=== PATIENT | female | born 1975 | race Caucasian/White ===

== ENCOUNTER → 2016-08-12 | Outpatient (REF) | payer OTHER ==
[~2016-08-12] MED LIST: AMLO5TAB2 PO; DYAZCA OR; FLUO20CA8 PO; IBUP600T26 PO; IRON325T3 PO; LISI5TAB PO; NORCOTAB PO; PANT40TA2 PO; metoprolol OR
== END ==
LOC: M LAB REF 21:28
PROVIDERS: ATTEND Physician Assistant Medical
DX: N39.0 Urinary tract infection, site not specified (principal)

== ENCOUNTER 2016-09-09 14:00 | Emergency (ER) | payer BC, OTHER ==
[~2016-09-09] VITALS: Ht 165.1 cm; Wt 99.8 kg
[2016-09-09] MEDS ORDERED: PANT40TA2 (14:12)
[2016-09-09] MEDS ORDERED: TRIAMTERENE-HCTZ (14:12)
[2016-09-09] MEDS ORDERED: FLUT1SPR2 (14:12)
[2016-09-09] MEDS ORDERED: LISI10TA4 (14:12)
[2016-09-09] MEDS ORDERED: FLUO20CA9 (14:12)
[2016-09-09] MEDS ORDERED: NS 1,000 ML IV ONE (14:30)
[2016-09-09] MEDS ORDERED: ONDANSETRON 4MG/2ML VIAL (J2405) IV ONE (14:30)
[2016-09-09] MEDS ORDERED: KETOROLAC 30 MG/ML VIAL (J1885) IV ONE (14:30)
[2016-09-09 15:04] LABS: BASO % 0.4 % (0.0-1.0); EOS # 0.1 K/mm3 (0.0-0.50); EOS % 1.8 % (0.0-3.0); LARGE UNSTAINED CELL # 0.1 K/mm3 (0.0-0.4); LARGE UNSTAINED CELL % 2.5 % (0.0-4.0); LYMPH # 1.5 K/mm3 (1.5-4.5); LYMPH % 28.3 % (24.0-44.0); MEAN CORPUSCULAR HEMOGLOBIN 29.6 pg (27.0-33.0); MEAN CORPUSCULAR HGB CONC 34.1 g/dl (32.0-36.5); MEAN CORPUSCULAR VOLUME 86.6 fl (80.0-96.0); MONO # 0.5 K/mm3 (0.0-0.8); MONO % 9.6 % (0.0-5.0); NEUTROPHILS # 3.1 K/mm3 (1.8-7.7); NEUTROPHILS % 57.4 % (36.0-66.0); PLATELET COUNT, AUTOMATED 237 k/mm3 (150-450); RED CELL DISTRIBUTION WIDTH 12.8 % (11.5-14.5); WHITE BLOOD COUNT 5.4 K/mm3 (4.0-10.0)
[2016-09-09 15:34] LABS: ALBUMIN 4.4 GM/DL (3.2-5.2); ALBUMIN/GLOBULIN RATIO 1.16 (1.00-1.93); ALKALINE PHOSPHATASE 92 U/L (45-117); ALT/SGPT 43 U/L (12-78); AMYLASE 42 U/L (25-115); ANION GAP 10 MEQ/L (8-16); AST/SGOT 29 U/L (15-37); BILIRUBIN,DIRECT 0.1 MG/DL (0.0-0.2); BILIRUBIN,TOTAL 0.3 MG/DL (0.2-1.0); BLOOD UREA NITROGEN 16 MG/DL (7-18); CALCIUM LEVEL 9.2 MG/DL (8.5-10.1); CARBON DIOXIDE LEVEL 22 MEQ/L (21-32); CHLORIDE LEVEL 105 MEQ/L (98-107); CREATININE FOR GFR 0.94 MG/DL (0.55-1.02); GLOMERULAR FILTRATION RATE > 60.0 (>58); GLUCOSE, FASTING 89 MG/DL (70-105); POTASSIUM SERUM 3.4 MEQ/L (3.5-5.1); SODIUM LEVEL 137 MEQ/L (136-145); TOTAL PROTEIN 8.2 GM/DL (6.4-8.2)
[2016-09-09] MEDS ORDERED: ZOFR4TAB3 PO (16:42)
[2016-09-09 16:49] VITALS: BP 107/76
== END 2016-09-09 16:53 | disposition home or self-care (01) ==
LOC: M ED 15:01
DX: A08.0 Rotaviral enteritis (principal); I10 Essential (primary) hypertension; F99 Mental disorder, not otherwise specified; J30.9 Allergic rhinitis, unspecified; Z87.891 Personal history of nicotine dependence; Z79.899 Other long term (current) drug therapy; Z91.09 Other allergy status, other than to drugs and biological substances
CPT/HCPCS: 80048; 80076; 81001; 82150; 83690; 85025; 87507; 96361; 96374; 96375; 99283; J1885; J2405

== ENCOUNTER 2016-12-08 21:45 | Emergency (ER) | payer BC, OTHER ==
[~2016-12-08] VITALS: Ht 165.1 cm; Wt 102.3 kg
[~2016-12-08 21:45] MED LIST changes: +FLUO20CA19; +FLUT1SPR2; +LISI10TA4; +PANT40TA2; +TRIAMTERENE-HCTZ; +ZOFR4TAB3 PO
[2016-12-08 21:46] VITALS: BP 122/79
[2016-12-08] MEDS ORDERED: METO50TA7 PO (21:54)
--- NOTE | 2016-12-09 06:32 | REP ---
Clinical: Trauma. Technique: AP, lateral, bilateral oblique views right foot . Findings: The osseous structures and joint spaces are intact and normal. There is no evidence for acute fracture or dislocation. Surrounding soft tissues are unremarkable. No subcutaneous emphysema or radiodense foreign body. Impression: Normal examination . No acute fracture or dislocation. Signed by Shaq Chris MD 12/09/2016 01:13 A
== END 2016-12-08 23:45 | disposition home or self-care (01) ==
LOC: M ED 21:45
DX: S90.31XA Contusion of right foot, initial encounter (principal); W23.0XXA Caught, crushed, jammed, or pinched between moving objects, initial encounter; Y92.410 Unspecified street and highway as the place of occurrence of the external cause; Y93.89 Activity, other specified; Y99.8 Other external cause status; Z98.84 Bariatric surgery status; Z90.79 Acquired absence of other genital organ(s); Z90.49 Acquired absence of other specified parts of digestive tract; Z79.899 Other long term (current) drug therapy; Z91.09 Other allergy status, other than to drugs and biological substances

== ENCOUNTER → 2017-07-30 | Outpatient (REF) | payer OTHER ==
[2017-07-30 21:48] LABS: APPEARANCE, URINE HAZY (CLEAR); BACTERIA, URINE AUTO 2+ (NEGATIVE); BILIRUBIN, URINE AUTO NEGATIVE (NEGATIVE); BLOOD, URINE BLOOD 2+ (NEGATIVE); COLOR, URINE YELLOW (YELLOW); GLUCOSE, URINE (UA) AUTO NEGATIVE (NEGATIVE); KETONE, URINE AUTO NEGATIVE (NEGATIVE); LEUKOCYTE ESTERASE, URINE AUTO 1+ (NEGATIVE); MUCUS, URINE SMALL (NEGATIVE); NITRITE, URINE AUTO POSITIVE (NEGATIVE); PROTEIN, URINE AUTO NEGATIVE (NEGATIVE); RBC, URINE AUTO 5 /HPF (0-3); SQUAMOUS EPITHELIAL CELL UR AU 0 /HPF (0-6); UROBILINOGEN, URINE AUTO 0.2 mg/dL (0.0-2.0); WBC, URINE AUTO 55 /HPF (0-3)
== END ==
LOC: M LAB REF 09:28
DX: N39.0 Urinary tract infection, site not specified (principal)
CPT/HCPCS: 81001

== ENCOUNTER 2017-10-13 10:36 | Emergency (ER) | payer BC, OTHER ==
[2017-10-13 12:38] LABS: BASO % 0.3 % (0.0-1.0); EOS % 0.5 % (0.0-3.0); HEMATOCRIT 40.9 % (36.0-47.0); HEMOGLOBIN 14.2 g/dl (12.0-15.5); IMMATURE GRANULOCYTE % 0.5 % (0-3.0); LYMPH # 1.4 10^3/uL (1.5-4.5); LYMPH % 21.2 % (24.0-44.0); MEAN CORPUSCULAR HEMOGLOBIN 28.9 pg (27.0-33.0); MEAN CORPUSCULAR HGB CONC 34.7 g/dl (32.0-36.5); MEAN CORPUSCULAR VOLUME 83.3 fl (80.0-96.0); MONO # 0.7 10^3/uL (0.0-0.8); MONO % 10.5 % (0.0-5.0); NEUTROPHILS # 4.5 10^3/uL (1.8-7.7); PLATELET COUNT, AUTOMATED 279 10^3/uL (150-450); RED BLOOD COUNT 4.91 10^6/uL (4.00-5.40); RED CELL DISTRIBUTION WIDTH 12.9 % (11.5-14.5); WHITE BLOOD COUNT 6.7 10^3/uL (4.0-10.0)
[2017-10-13] MEDS: PANTOPRAZOLE 40MG INJ (PROTONIX) (C9113) IV (12:47)
[2017-10-13] MEDS: NS 1,000 ML IV (12:47)
[2017-10-13] MEDS: ONDANSETRON 4MG/2ML VIAL (J2405) IV (12:47)
[2017-10-13] MEDS: KETOROLAC 30 MG/ML VIAL (J1885) IV (12:48)
[2017-10-13 12:58] LABS: LACTIC ACID SEPSIS PROTOCOL 1.7 MMOL/L (0.4-2.0)
[2017-10-13 12:59] LABS: ALBUMIN 3.9 GM/DL (3.2-5.2); ALBUMIN/GLOBULIN RATIO 0.87 (1.00-1.93); ALKALINE PHOSPHATASE 81 U/L (45-117); ALT/SGPT 52 U/L (12-78); ANION GAP 9 MEQ/L (8-16); AST/SGOT 37 U/L (7-37); BILIRUBIN,DIRECT 0.1 MG/DL (0.0-0.2); BILIRUBIN,TOTAL 0.4 MG/DL (0.2-1.0); BLOOD UREA NITROGEN 7 MG/DL (7-18); CALCIUM LEVEL 9.5 MG/DL (8.5-10.1); CARBON DIOXIDE LEVEL 24 MEQ/L (21-32); CHLORIDE LEVEL 102 MEQ/L (98-107); CREATININE FOR GFR 0.74 MG/DL (0.55-1.30); GLOMERULAR FILTRATION RATE > 60.0 (>58); GLUCOSE, FASTING 97 MG/DL (70-100); LIPASE 90 U/L (73-393); POTASSIUM SERUM 3.1 MEQ/L (3.5-5.1); SODIUM LEVEL 135 MEQ/L (136-145); TOTAL PROTEIN 8.4 GM/DL (6.4-8.2)
[2017-10-13] MEDS ORDERED: ISOVUE-370 76% 100ML VIAL (Q9967) As Ordered (13:04)
[2017-10-13 13:11] LABS: KETONE, URINE AUTO RFX NEGATIVE (NEGATIVE); LEUKOCYTE ESTERASE UR AUTO RFX NEGATIVE (NEGATIVE); MUCUS, URINE RFX SMALL (NEGATIVE); NITRITE, URINE AUTO RFX NEGATIVE (NEGATIVE); RBC, URINE AUTO RFX 5 /HPF (0-3); SPECIFIC GRAVITY UR AUTO RFX 1.023 (1.002-1.035); SQUAM EPITHELIAL CELL UR AURFX 1 /HPF (0-6); WBC, URINE AUTO RFX 10 /HPF (0-3)
[2017-10-13] MEDS: POTASSIUM CHLORIDE 10 MEQ SR TABLET PO (14:50)
== END 2017-10-13 15:32 | disposition home or self-care (01) ==
LOC: M ED 10:36
DX: A08.4 Viral intestinal infection, unspecified (principal); I10 Essential (primary) hypertension; K21.9 Gastro-esophageal reflux disease without esophagitis; J01.90 Acute sinusitis, unspecified; R60.9 Edema, unspecified; K22.70 Barrett's esophagus without dysplasia; F41.9 Anxiety disorder, unspecified; N83.8 Other noninflammatory disorders of ovary, fallopian tube and broad ligament; Z98.84 Bariatric surgery status
CPT/HCPCS: C9113

== ENCOUNTER 2018-02-21 04:32 | Emergency (ER) | payer BC, OTHER ==
[2018-02-21 05:45] LABS: BASO % 0.3 % (0.0-1.0); EOS # 0.1 10^3/uL (0.0-0.50); EOS % 0.6 % (0.0-3.0); HEMATOCRIT 37.2 % (36.0-47.0); HEMOGLOBIN 12.7 g/dl (12.0-15.5); IMMATURE GRANULOCYTE % 0.2 % (0-3.0); LYMPH # 2.3 10^3/uL (1.5-4.5); LYMPH % 18.5 % (24.0-44.0); MEAN CORPUSCULAR HEMOGLOBIN 29.3 pg (27.0-33.0); MEAN CORPUSCULAR HGB CONC 34.1 g/dl (32.0-36.5); MEAN CORPUSCULAR VOLUME 85.7 fl (80.0-96.0); MONO # 0.8 10^3/uL (0.0-0.8); MONO % 6.4 % (0.0-5.0); NEUTROPHILS # 9.1 10^3/uL (1.8-7.7); PLATELET COUNT, AUTOMATED 274 10^3/uL (150-450); RED BLOOD COUNT 4.34 10^6/uL (4.00-5.40); RED CELL DISTRIBUTION WIDTH 13.6 % (11.5-14.5); WHITE BLOOD COUNT 12.2 10^3/uL (4.0-10.0)
[2018-02-21] MEDS: PANTOPRAZOLE 40MG INJ (PROTONIX) (C9113) IV (05:45)
[2018-02-21] MEDS: GI COCKTAIL 50ML BTL(HYOSCYAMINE/MAALOX/LIDOCAINE VISCOUS)(1:3:1) PO (05:45)
[2018-02-21] MEDS: MORPHINE 4 MG/ML 1ML VIAL/SYRINGE (J2270) IV ×2 (05:46→06:22)
[2018-02-21 06:03] LABS: ALBUMIN 3.8 GM/DL (3.2-5.2); ALBUMIN/GLOBULIN RATIO 1.03 (1.00-1.93); ALKALINE PHOSPHATASE 73 U/L (45-117); ALT/SGPT 34 U/L (12-78); ANION GAP 14 MEQ/L (8-16); AST/SGOT 31 U/L (7-37); BILIRUBIN,DIRECT < 0.1 MG/DL (0.0-0.2); BILIRUBIN,TOTAL 0.3 MG/DL (0.2-1.0); BLOOD UREA NITROGEN 12 MG/DL (7-18); CALCIUM LEVEL 9.3 MG/DL (8.5-10.1); CARBON DIOXIDE LEVEL 21 MEQ/L (21-32); CHLORIDE LEVEL 106 MEQ/L (98-107); CK-MB VALUE MASS < 1.0 NG/ML (<3.6); CPK CREATINE PHOSPHOKINASE 129 U/L (26-192); CREATININE FOR GFR 0.77 MG/DL (0.55-1.30); GLOMERULAR FILTRATION RATE > 60.0 (>58); GLUCOSE, FASTING 104 MG/DL (70-100); LIPASE 121 U/L (73-393); MB/CK RELATIVE INDEX 0.78 (< OR =4); POTASSIUM SERUM 3.8 MEQ/L (3.5-5.1); SODIUM LEVEL 141 MEQ/L (136-145); TOTAL PROTEIN 7.5 GM/DL (6.4-8.2); TROPONIN I < 0.02 NG/ML (< 0.10)
[2018-02-21] MEDS: GASTROGRAFIN SOLUTION 30ML PO ×2 (06:21→06:50)
[2018-02-21] MEDS ORDERED: ISOVUE-370 76% 100ML VIAL (Q9967) As Ordered (08:00)
== END 2018-02-21 10:43 | disposition home or self-care (01) ==
LOC: M ED 04:32
DX: R10.13 Epigastric pain (principal); N83.201 Unspecified ovarian cyst, right side; I10 Essential (primary) hypertension; K21.9 Gastro-esophageal reflux disease without esophagitis; M54.9 Dorsalgia, unspecified; F32.9 Major depressive disorder, single episode, unspecified; Z98.84 Bariatric surgery status; Z87.891 Personal history of nicotine dependence; Z91.048 Other nonmedicinal substance allergy status; Z79.899 Other long term (current) drug therapy
CPT/HCPCS: C9113

== ENCOUNTER 2019-12-13 14:12 | Emergency (ER) | payer OTHER, BC ==
[~2019-12-13] VITALS: Ht 165.1 cm; Wt 101.7 kg
[2019-12-13 14:12] VITALS: BP 109/75
[~2019-12-13 14:12] MED LIST changes: -FLUO20CA19; +FLUO20CA20 PO; +FLUO20CA22; +METO50TA7 PO; -PANT40TA2; +PANT40TA3; +REGL5TAB2 PO; +SUCR1TA PO; +ZOFR4TAB14 PO; -ZOFR4TAB3 PO
[2019-12-13] MEDS ORDERED: FLUO60TA6 (14:20)
[2019-12-13] MEDS ORDERED: TRIA37.53 (14:20)
[2019-12-13] MEDS ORDERED: METO1TAB7 (14:20)
--- NOTE | 2019-12-13 16:11 | REP ---
REASON: Status post trauma. There is a small avulsion fracture of the medial corner of the distal metaphysis of the proximal phalanx of the 5th digit with a slight intra-articular component. There is associated soft tissue swelling. Plantar and retrocalcaneal heel spurs are also noted. IMPRESSION: 5th digital fracture as described above. Electronically Signed by Tyrell Walker DO 12/13/2019 05:03 P
== END 2019-12-13 15:33 | disposition home or self-care (01) ==
LOC: M ED 14:12
DX: S92.512A Displaced fracture of proximal phalanx of left lesser toe(s), initial encounter for closed fracture (principal); M77.32 Calcaneal spur, left foot; Z91.048 Other nonmedicinal substance allergy status; W22.8XXA Striking against or struck by other objects, initial encounter; Y92.9 Unspecified place or not applicable; Y93.9 Activity, unspecified; Y99.8 Other external cause status; I10 Essential (primary) hypertension; Z98.84 Bariatric surgery status; Z79.899 Other long term (current) drug therapy; K21.9 Gastro-esophageal reflux disease without esophagitis; K22.70 Barrett's esophagus without dysplasia

== ENCOUNTER 2020-01-25 18:26 | Emergency (ER) | payer BC, OTHER ==
[~2020-01-25] VITALS: Ht 165.1 cm; Wt 99.7 kg
[~2020-01-25 18:26] MED LIST changes: +FLUO60TA6; +METO1TAB7; +PANT40TA29; -PANT40TA3; +TRIA37.53
[2020-01-25 19:44] LABS: BASO % 0.3 % (0.0-1.0); EOS # 0.1 10^3/uL (0.0-0.5); EOS % 0.8 % (0.0-3.0); HEMATOCRIT 38.8 % (36.0-47.0); HEMOGLOBIN 12.7 g/dl (12.0-15.5); LYMPH # 1.8 10^3/uL (1.5-5.0); LYMPH % 19.4 % (24.0-44.0); MEAN CORPUSCULAR HEMOGLOBIN 28.3 pg (27.0-33.0); MEAN CORPUSCULAR HGB CONC 32.7 g/dl (32.0-36.5); MEAN CORPUSCULAR VOLUME 86.4 fl (80.0-96.0); MONO # 0.7 10^3/uL (0.0-0.8); MONO % 7.6 % (0.0-5.0); NEUTROPHILS # 6.8 10^3/uL (1.5-8.5); NEUTROPHILS % 71.7 % (36.0-66.0); PLATELET COUNT, AUTOMATED 277 10^3/uL (150-450); RED BLOOD COUNT 4.49 10^6/uL (4.00-5.40); WHITE BLOOD COUNT 9.4 10^3/uL (4.0-10.0)
[2020-01-25 19:57] LABS: ALBUMIN 3.9 GM/DL (3.2-5.2); ALT/SGPT 30 U/L (12-78); BILIRUBIN,DIRECT < 0.1 MG/DL (0.0-0.2); BILIRUBIN,TOTAL 0.3 MG/DL (0.2-1.0); BLOOD UREA NITROGEN 13 MG/DL (7-18); CALCIUM LEVEL 9.2 MG/DL (8.5-10.1); CARBON DIOXIDE LEVEL 27 MEQ/L (21-32); CHLORIDE LEVEL 102 MEQ/L (98-107); CREATININE FOR GFR 0.77 MG/DL (0.55-1.30); GLOMERULAR FILTRATION RATE > 60.0 (>58); GLUCOSE, FASTING 91 MG/DL (70-100); LIPASE 675 U/L (73-393); SODIUM LEVEL 136 MEQ/L (136-145); TOTAL PROTEIN 7.2 GM/DL (6.4-8.2)
[2020-01-25] MEDS ORDERED: CIPR-249 PO (20:31)
[2020-01-25] MEDS ORDERED: ZOFR4TAB16 PO (20:31)
[2020-01-25] MEDS ORDERED: NORC1TAB7 PO (20:31)
[2020-01-25 20:42] VITALS: BP 132/61
== END 2020-01-25 20:50 | disposition home or self-care (01) ==
LOC: M ED 18:26
DX: N39.0 Urinary tract infection, site not specified (principal); K85.90 Acute pancreatitis without necrosis or infection, unspecified; I10 Essential (primary) hypertension; K21.9 Gastro-esophageal reflux disease without esophagitis; E28.2 Polycystic ovarian syndrome; Z98.84 Bariatric surgery status; Z91.048 Other nonmedicinal substance allergy status; Z79.899 Other long term (current) drug therapy

== ENCOUNTER → 2020-05-19 | Outpatient (CLI) | payer BC, OTHER ==
[~2020-05-19] MED LIST changes: +CIPR-249 PO; +NORC1TAB7 PO; +ZOFR4TAB16 PO
== END ==
LOC: M LABSMTC 09:50
PROVIDERS: ATTEND Pediatrics
DX: Z11.59 Encounter for screening for other viral diseases (principal)

== ENCOUNTER → 2020-07-03 | Outpatient (CLI) | payer BC, OTHER ==
[~2020-07-03] MED LIST changes: +LISI10TA22; -LISI10TA4
--- NOTE | 2020-07-04 05:05 | REP ---
INDICATION: VARICOSE VEINS ANDIE LEGS WITH PAIN COMPARISON: None. TECHNIQUE: Gallegos scale and color Doppler evaluation bilateral lower extremities using linear high frequency transducer including reflux evaluation. FINDINGS: Ultrasound examination of the right and left lower extremity deep venous structures from the common femoral vein to the popliteal vein demonstrates normal compressibility flow and wave patterns in response to respiration and augmentation. There is no evidence for deep venous thrombosis. Right lower extremity demonstrates only minimal reflux in the proximal greater saphenous vein measuring 4 mm diameter with reflux duration 4.8 seconds extending into the accessory saphenous vein. Left lower extremity demonstrates no reflux. IMPRESSION: No evidence for deep venous thrombosis. No significant reflux. <Electronically signed by Shaq Chris > 07/04/20 [id number]
== END ==
LOC: M RAD 09:40
PROVIDERS: ATTEND Physician Assistant
DX: I83.813 Varicose veins of bilateral lower extremities with pain (principal)

== ENCOUNTER → 2020-09-14 | Outpatient (REF) | payer BC, OTHER ==
[2020-09-14 18:24] LABS: APPEARANCE, URINE CLEAR (CLEAR); BACTERIA, URINE AUTO NEGATIVE (NEGATIVE); BILIRUBIN, URINE AUTO NEGATIVE (NEGATIVE); BLOOD, URINE BLOOD NEGATIVE (NEGATIVE); COLOR, URINE YELLOW (YELLOW); GLUCOSE, URINE (UA) AUTO NEGATIVE (NEGATIVE); KETONE, URINE AUTO NEGATIVE (NEGATIVE); LEUKOCYTE ESTERASE, URINE AUTO NEGATIVE (NEGATIVE); MUCUS, URINE SMALL (NEGATIVE); NITRITE, URINE AUTO NEGATIVE (NEGATIVE); PROTEIN, URINE AUTO NEGATIVE (NEGATIVE); RBC, URINE AUTO 1 /HPF (0-3); SPECIFIC GRAVITY URINE AUTO 1.012 (1.002-1.035); SQUAMOUS EPITHELIAL CELL UR AU 0 /HPF (0-6); UROBILINOGEN, URINE AUTO 0.2 mg/dL (0.0-2.0); WBC, URINE AUTO 0 /HPF (0-3)
== END ==
LOC: M LAB REF 16:27
PROVIDERS: ATTEND Obstetrics & Gynecology
DX: R10.32 Left lower quadrant pain (principal)

== ENCOUNTER → 2020-10-09 | Outpatient (CLI) | payer BC, OTHER ==
--- NOTE | 2020-10-09 12:50 | REPMRS ---
Patient History The patient states she had a clinical breast exam in 08/2020. Patient is nulliparous. No Hormone Replacement Therapy Patient states no breast complaints today. Patient has signed MRS History Sheet. Digital Woman Screen Mammo: October 09, 2020 - Exam #: [id number] Bilateral CC and MLO view(s) were taken. Technologist: Henrietta Hernandez, Technologist Prior study comparison: November 23, 2018, bilateral digital mammo screening bilat, performed at [facility]. November 15, 2017, bilateral digital mammo screening bilat, performed at [facility]. FINDINGS: The breast tissue is almost entirely fat. Screening. Digital screening (2D) mammography was performed bilaterally in the CC and MLO projections. Additionally, breast tomosynthesis (3D mammography) was performed bilaterally in the CC and MLO projections. Todays exam was compared to the prior exams. By history, the patient has no complaints of a palpable breast abnormality or other significant breast complaints. The breasts are unchanged in size and shape. There are no sy-soft tissue densities or spiculated masses. There is no internal architectural distortion. There are no suspicious sy-calcific clusters. Skin thickening or nipple retraction is not present. IMPRESSION: BI-RADS Category 2- Benign Findings. There is no evidence of malignant alteration of the breasts. Followup examination recommended in one year. The Volpara volumetric breast density category is A, the breasts are almost entirely fatty. This mammogram was read with the assistance of vocaltap,an FDA approved computer aided detection system for mammography. The lifetime Tyrer-Cuzick score is 13.5 % Negative x-ray reports should not delay surgical consultation if a dominant or clinically suspicious mass is present. Not all breast cancers can be identified by mammography. Therefore, we recommend that you continue to perform regular breast self-examination and physical examination and then promptly contact your physician of any concerns or changes. Adenosis and dense breasts may obscure an underlying neoplasm. Assessment: BI-RADS/ACR category 2 mammogram. Benign Findings. Recommendation Routine screening mammogram of both breasts in 1 year. Electronically Signed By: Tyrell Walker DO 10/09/20 [id number]
--- NOTE | 2020-10-11 07:48 | REP ---
INDICATION: R10.32 LLQ PAIN COMPARISON: 12/11/2017 TECHNIQUE: Transabdominal pelvic ultrasound followed by transvaginal examination for better evaluation of the adnexa.. FINDINGS: Bladder is unremarkable and measures 9.0 x 5.1 x 6.7 cm. Evidence for prior hysterectomy and presumed oophorectomy. No pelvic fluid or adnexal mass lesion. IMPRESSION: Evidence for prior hysterectomy. The ovaries not visualized. No pelvic fluid or adnexal mass lesion. <Electronically signed by Shaq Chris > 10/11/20 [id number]
== END ==
LOC: M WHC 11:50
PROVIDERS: ATTEND Obstetrics & Gynecology
DX: Z12.31 Encounter for screening mammogram for malignant neoplasm of breast (principal); R10.32 Left lower quadrant pain; Z90.710 Acquired absence of both cervix and uterus

== ENCOUNTER → 2021-10-18 | Outpatient (REF) | payer BC, OTHER ==
[~2021-10-18] MED LIST changes: +FLUO-96 PO; -FLUO20CA20 PO
[2021-10-18 17:25] LABS: APPEARANCE, URINE HAZY (CLEAR); BACTERIA, URINE AUTO NEGATIVE (NEGATIVE); BILIRUBIN, URINE AUTO NEGATIVE (NEGATIVE); BLOOD, URINE BLOOD NEGATIVE (NEGATIVE); COLOR, URINE YELLOW (YELLOW); GLUCOSE, URINE (UA) AUTO NEGATIVE (NEGATIVE); KETONE, URINE AUTO NEGATIVE (NEGATIVE); LEUKOCYTE ESTERASE, URINE AUTO NEGATIVE (NEGATIVE); NITRITE, URINE AUTO NEGATIVE (NEGATIVE); PROTEIN, URINE AUTO NEGATIVE (NEGATIVE); RBC, URINE AUTO 0 /HPF (0-3); SPECIFIC GRAVITY URINE AUTO 1.014 (1.002-1.035); SQUAMOUS EPITHELIAL CELL UR AU 0 /HPF (0-6); UROBILINOGEN, URINE AUTO 0.2 mg/dL (0.0-2.0); WBC, URINE AUTO 1 /HPF (0-3)
== END ==
LOC: M LAB REF 16:34
PROVIDERS: ATTEND Obstetrics & Gynecology
DX: N32.81 Overactive bladder (principal); N39.46 Mixed incontinence

== ENCOUNTER → 2022-03-30 | Outpatient (CLI) | payer BC, OTHER ==
[~2022-03-30] MED LIST changes: -TRIA37.53; +TRIA37.577
== END ==
LOC: M WHC 16:07
PROVIDERS: ATTEND Nurse Practitioner Family
DX: Z12.31 Encounter for screening mammogram for malignant neoplasm of breast (principal)

== ENCOUNTER → 2022-06-08 | Outpatient (REF) | payer OTHER | LOC: M LAB REF 17:17 | PROVIDERS: ATTEND Registered Nurse | DX: R30.0 Dysuria (principal) ==

== ENCOUNTER → 2023-01-15 | Outpatient (REF) | payer OTHER | LOC: M LAB REF 16:05 | PROVIDERS: ATTEND Internal Medicine | DX: N30.01 Acute cystitis with hematuria (principal) ==

== ENCOUNTER → 2023-08-29 | Outpatient (REF) | payer OTHER, BC ==
[2023-08-29 21:48] LABS: APPEARANCE, URINE CLEAR (CLEAR); BACTERIA, URINE AUTO NEGATIVE (NEGATIVE); BILIRUBIN, URINE AUTO NEGATIVE (NEGATIVE); BLOOD, URINE BLOOD NEGATIVE (NEGATIVE); COLOR, URINE AMBER (YELLOW); GLUCOSE, URINE (UA) AUTO NEGATIVE (NEGATIVE); KETONE, URINE AUTO NEGATIVE (NEGATIVE); LEUKOCYTE ESTERASE, URINE AUTO NEGATIVE (NEGATIVE); MUCUS, URINE SMALL (NEGATIVE); NITRITE, URINE AUTO POSITIVE (NEGATIVE); PROTEIN, URINE AUTO NEGATIVE (NEGATIVE); RBC, URINE AUTO 1 /HPF (0-3); SPECIFIC GRAVITY URINE AUTO 1.025 (1.002-1.035); SQUAMOUS EPITHELIAL CELL UR AU 1 /HPF (0-6); WBC, URINE AUTO 9 /HPF (0-3)
== END ==
LOC: M LAB REF 21:29
PROVIDERS: ATTEND Physician Assistant
DX: N39.0 Urinary tract infection, site not specified (principal)

== ENCOUNTER 2023-11-05 00:32 | Emergency (ER) | payer BC, OTHER ==
[~2023-11-05] VITALS: Ht 165.1 cm; Wt 86.4 kg
[2023-11-05 00:32] VITALS: TEMP 97
[~2023-11-05 00:32] MED LIST changes: +FLUO-365; -FLUO20CA22
[2023-11-05] MEDS: ACETAMINOPHEN 500 MG TAB PO ONE (01:54)
[2023-11-05 02:59] VITALS: BP 101/63; O2SAT 98
== END 2023-11-05 03:01 | disposition home or self-care (01) ==
LOC: M ED 00:32
DX: S83.92XA Sprain of unspecified site of left knee, initial encounter (principal); Y92.019 Unspecified place in single-family (private) house as the place of occurrence of the external cause; Y93.9 Activity, unspecified; Y99.9 Unspecified external cause status; I10 Essential (primary) hypertension; K21.9 Gastro-esophageal reflux disease without esophagitis; F17.290 Nicotine dependence, other tobacco product, uncomplicated; F10.10 Alcohol abuse, uncomplicated; Z91.048 Other nonmedicinal substance allergy status; Z79.1 Long term (current) use of non-steroidal anti-inflammatories (NSAID); Z79.899 Other long term (current) drug therapy

== ENCOUNTER → 2023-12-13 | Outpatient (CLI) | payer BC | LOC: M RAD 09:13 | PROVIDERS: ATTEND Neurological Surgery | DX: M48.062 Spinal stenosis, lumbar region with neurogenic claudication (principal) ==

== ENCOUNTER → 2024-02-16 | Outpatient (REF) | payer BC ==
[2024-02-16 21:39] LABS: APPEARANCE, URINE HAZY (CLEAR); BACTERIA, URINE AUTO NEGATIVE (NEGATIVE); BILIRUBIN, URINE AUTO NEGATIVE (NEGATIVE); BLOOD, URINE BLOOD 1+ (NEGATIVE); COLOR, URINE YELLOW (YELLOW); GLUCOSE, URINE (UA) AUTO NEGATIVE (NEGATIVE); KETONE, URINE AUTO NEGATIVE (NEGATIVE); LEUKOCYTE ESTERASE, URINE AUTO 3+ (NEGATIVE); NITRITE, URINE AUTO NEGATIVE (NEGATIVE); PROTEIN, URINE AUTO NEGATIVE (NEGATIVE); RBC, URINE AUTO 8 /HPF (0-3); SPECIFIC GRAVITY URINE AUTO 1.005 (1.002-1.035); SQUAMOUS EPITHELIAL CELL UR AU 2 /HPF (0-6); UROBILINOGEN, URINE AUTO 0.2 mg/dL (0.0-2.0); WBC, URINE AUTO 12 /HPF (0-3)
== END ==
LOC: M LAB REF 21:06
PROVIDERS: ATTEND Physician Assistant Medical
DX: N39.0 Urinary tract infection, site not specified (principal)

== ENCOUNTER → 2024-10-14 | Outpatient (CLI) | payer BC | LOC: M WUC 13:28 | PROVIDERS: ATTEND Registered Nurse | DX: Z01.818 Encounter for other preprocedural examination (principal) ==

== ENCOUNTER → 2025-04-30 | Outpatient (CLI) | payer BC | LOC: M WHC 13:04 | PROVIDERS: ATTEND Registered Nurse | DX: Z12.31 Encounter for screening mammogram for malignant neoplasm of breast (principal); R92.313 Mammographic fatty tissue density, bilateral breasts ==